=== PATIENT | female | born 1995 | race Caucasian/White ===

== ENCOUNTER 2017-08-08 23:43 | Observation (INO) ==
[2017-08-09] MEDS ORDERED: Acetaminophen 325 MG TABLET PO PRN (00:18)
--- NOTE | 2017-08-09 00:40 | OB/GYN Progress Note ---
Date of Encounter: 08/09/17 Time of Encounter: 00:38 - Assessment and Plan (1) 37 weeks gestation of Current Visit: Yes Status: Acute admitted for observation (2) Fall Current Visit: Yes Status: Acute EFM and toco for 6 hours from time of fall Qualifiers: Encounter type: initial encounter Qualified Code(s): W19.XXXA - Unspecified fall, initial encounter (3) NST (non-stress test) reactive on surveillance Current Visit: Yes Status: Acute 140 bpm moderate variability +15x15 accels no decels. No contractions noted. Subjective - Subjective Principal diagnosis: Fall Interval history: Patient is a 22 y/o at 37w5d presents to labor and delivery via squad after a fall. Patient reports around 2300 she was standing on a small chair to get something from the top of her closet and fell on her right leg and forearm. Patient denies hitting her belly. Patient reports +FM, denies contractions, LOF or VB. Antepartum ROS: movement normal, no loss of fluid, no vaginal bleeding, no contractions Objective - Vital Signs Vital Signs: Intake and Output 08/08/17 08/08/17 08/09/17 15:59 23:59 07:59 Other: Weight 78.018 kg Patient Weight 08/09/17 23:59 Weight 78.018 kg - Exam FHR: auscultation normal, category 1 FHR comments: FHR baseline 140 bpm moderate variability +15x15 accels no decels noted. No contractions. Cat. 1 tracing Auscultation: bilateral: normal Abdomen: Present: normal appearance, soft, gravid Comments: no bruising or redness noted on right leg, arm or abdomen. Blood type: O+
[2017-08-09 06:15] LABS: Amphetamine Screen,Urine Negative ng/mL (Cutoff=1000); Barbiturate Screen,Urine Negative ng/mL (Cutoff=200); Benzodiazepines Screen,Urine Negative ng/mL (Cutoff=200); Cannabinoid Screen,Urine Positive ng/mL (Cutoff = 50); Cocaine Screen,Urine Negative ng/mL (Cutoff= 300); Opiate Screen,Urine Negative ng/mL (Cutoff=300); Phencyclidine Screen,Urine Negative ng/mL (Cutoff=25)
== END 2017-08-09 06:29 | disposition home or self-care (01) ==
LOC: 1NENULAB
PROVIDERS: ADMIT Advanced Practice Midwife; ATTEND Advanced Practice Midwife

== ENCOUNTER 2017-08-22 03:45 | Inpatient (IN) ==
[2017-08-22] MEDS ORDERED: Lidocaine 1% 20 ML MDV ID PRN (04:08)
[2017-08-22] MEDS ORDERED: Metoclopramide 10 MG/2 ML VIAL IVP PRN (04:08)
[2017-08-22] MEDS ORDERED: Famotidine 20 MG/2 ML VIAL IVP PRN (04:08)
[2017-08-22] MEDS ORDERED: *HR* Nalbuphine 10 MG/ML AMPUL IVP PRN (04:08)
[2017-08-22] MEDS ORDERED: Acetaminophen 325 MG TABLET PO ONE (04:37)
[2017-08-22] MEDS ORDERED: miSOPROStol 25 MCG TABLET VG SCH (04:45)
[2017-08-22] MEDS ORDERED: Ondansetron 4 MG/2 ML VIAL IVP ONE (04:52)
[2017-08-22] MEDS ORDERED: Ondansetron 4 MG/2 ML VIAL ONE (04:54)
[2017-08-22 05:25] LABS: Basophils % 0.2 %; Eosinophils # 0.1 K/mcL (0.0-0.6); Eosinophils % 1.4 %; Hematocrit 27.8 % (35.3-44.9); Immature Granulocytes % 0.6 % (0-4); Lymphocytes # 2.6 K/mcL (0.6-4.6); Lymphocytes % 25.7 %; Mean Corpuscular HGB Conc 32.4 g/dL (31.6-35.5); Mean Corpuscular Hemoglobin 25.9 pg (28.0-33.3); Mean Corpuscular Volume 79.9 fL (83.0-100.0); Mean Platelet Volume 11.5 fL (9.4-12.4); Monocytes # 0.8 K/mcL (0.0-1.3); Monocytes % 7.9 %; Neutrophils # 6.4 K/mcL (1.6-8.9); Platelet Count 172 K/mcL (140-400); Red Blood Count 3.48 M/mcL (3.82-4.97); Red Cell Distribution Width 16.7 % (11.5-14.5); Segmented Neutrophils % 64.2 %
[2017-08-22 06:28] LABS: Amphetamine Screen,Urine Negative ng/mL (Cutoff=1000); Barbiturate Screen,Urine Negative ng/mL (Cutoff=200); Benzodiazepines Screen,Urine Negative ng/mL (Cutoff=200); Cannabinoid Screen,Urine Positive ng/mL (Cutoff = 50); Cocaine Screen,Urine Negative ng/mL (Cutoff= 300); Opiate Screen,Urine Negative ng/mL (Cutoff=300); Phencyclidine Screen,Urine Negative ng/mL (Cutoff=25)
--- NOTE | 2017-08-22 07:59 | OB/GYN History & Physical ---
Date of Encounter: 08/22/17 Time of Encounter: 08:21 Assessment and Plan (1) Elective induction of labor planned Current visit: Yes Status: Acute 22 y/o @ 39 weeks, IOL for polyhydramnios( VEENA 27) GDMA1 Anemia Plan: patient received cytotec at 5:10AM, will start pitocin after this does is completed, will AROM with advanced dilation, ok for epidural if she desires, anticipate , check FS now FHT CAT 1 History of Present Illness Chief complaint: IOL HPI: Ms. Butler is a 22 year old female @ 39 weeks who presents to the office for IOL s/2 polyhydramnios. She has been followed with NSTs and has done well. She does not report LOF, VB or ctxs, feels good FM. GBS neg, patient is anemic. Past Med Surg Social Fam HX - Past Medical History Medical history: no medical history Additional medical history: GDM, Psychiatric history: anxiety, depression, other - Past Surgical History Surgical History: no surgical history - Social History Smoking Status: Never smoker Smokeless Tobacco Status: No Alcohol use: none Drug use: none - Family History Mother Adopted: No Age: 44 Family Member Ethnicity: Non- Living Status: Still Living Hx Family Cardiac Disorders: No Hx Family Respiratory Disorders: No Hx Family Cancer: No Hx Family GI Disorders: No Hx Family Genitourinary Disorders: No Hx Family Endocrine Disorder: No Hx Family Musculoskeletal Disorders: No Hx Family Neuromuscular Disorders: No Hx Family Neurologic Disorders: No Hx Family HEENT Disorders: No Hx Family Autoimmune Disorders: No Hx Family Reproductive Disorders: No Hx Family Psychosocial Disorders: No Hx Family Medical Disorders: No Obstetrical History - Pregnancies : 1 Medications and Allergies Flintstones 1 tab PO DAILY 08/09/17 [History] Vistaril 1 tab PO Q6HR PRN 08/09/17 [History] 3 Allergy/AdvReac Type Severity Reaction Status Date / Time No Known Allergies Allergy Verified 08/09/17 00:07 Review of System OB All systems PM: reviewed and no additional remarkable complaints except as stated Exam - Vital Signs Vital signs: Initial Vital Signs Temp Pulse Resp BP 98.1 F 125 16 113/72 08/22/17 04:14 08/22/17 04:14 08/22/17 04:14 08/22/17 04:14 - Constitutional Constitutional: no acute distress - HEENT HEENT: PERRL - Neck Neck exam: full ROM - Lungs Respiratory exam: CTAB - Cardiovascular Cardiovascular exam: RRR - Abdomen Abdomen: Present: gravid - Extremities Extremities exam: warm - Cervix Dilation: 3 Effacement: 80 Results Result Diagrams: 08/22/17 04:09 Abnormal lab results RBC 3.48 M/mcL (3.82-4.97) L 08/22/17 04:09 Hgb 9.0 g/dL (11.5-15.4) L 08/22/17 04:09 Hct 27.8 % (35.3-44.9) L 08/22/17 04:09 MCV 79.9 fL (83.0-100.0) L 08/22/17 04:09 MCH 25.9 pg (28.0-33.3) L 08/22/17 04:09 RDW 16.7 % (11.5-14.5) H 08/22/17 04:09 U Marijuana (THC) Screen Positive ng/mL (Cutoff = 50) H 08/22/17 05:50 All other labs normal. - VTE Reasons for not Prescribing Prophylaxis: Treatment not Indicated - Low risk for VTE
[2017-08-22] MEDS ORDERED: Oxytocin 20 units/ LR 1000 mL 20 UNIT/1,000 ML BAG IVC ONE (09:28)
--- NOTE | 2017-08-22 12:29 | OB Labor Progress Note ---
Date of Encounter: 08/22/17 Time of Encounter: 12:28 Labor Progress Note - Subjective Subjective: patient feeling more of her ctxs - Vital Signs Vital Signs: VSS - Cervix Cervix: 4cm/80% - Heart Tones Heart Tones: CAT 1 - Plan Plan: patient AROM'ed with meconium, pitocin at 6, ok for epidural, cont monitoring, anticipate
[2017-08-22] MEDS: Ringers Solution, Lactated 1,000 ML IVC SCH ×2 (12:42→16:46)
[2017-08-22] MEDS ORDERED: Bupivacaine-MPF 0.25% 10 ML VIAL EP ONE (12:58)
[2017-08-22] MEDS ORDERED: *HR* FentaNYL (PF) 100 MCG/2 ML VIAL EP ONE (12:58)
[2017-08-22] MEDS ORDERED: Epidural Premix (fent/bupiv) 110 ML EP SCH (13:00)
[2017-08-22] MEDS ORDERED: Epidural Premix (fent/bupiv) 110 ML EP ONE (13:11)
[2017-08-22] MEDS ORDERED: Lidocaine -MPF 2% 5 ML VIAL ONE (13:14)
[2017-08-22] MEDS ORDERED: Bupivacaine-MPF 0.25% 10 ML VIAL ONE (13:17)
--- NOTE | 2017-08-22 13:57 | Anesthesia Evaluation PreOp ---
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 Denies any problems or decreased kidney function and has been under no treatment.) Anesthesia History: No Prior Anesthetic Complications (Has never had any type of anesthesia. Stats no FHAP.) : Yes Alcohol Use: none Drug use: none Medications and Allergies Flintstones 1 tab PO DAILY 08/09/17 [History] Vistaril 1 tab PO Q6HR PRN 08/09/17 [History] 3 Allergy/AdvReac Type Severity Reaction Status Date / Time No Known Allergies Allergy Verified 08/09/17 00:07 - Meds/Allergy Pre-op Review Medications Reviewed: Yes Allergies Reviewed: Yes Beta Blockers on Current Med List: No Anesthesia Results - Labs 08/22/17 04:09 Anesthesia Exam 115/71, 88, 16, 99%. FHTs 120s. Height: 5'1" Weight: 79 kg NPO (# of Hours): >8 Pain Scale: 8 Pain Scale Used: Numeric (1 - 10) - HEENT Pupil (Motor): Pupils equal Mallampati: II Teeth: Normal Oral Opening: Greater than 3 - [employer] LOC: Oriented [employer] Motor: Normal RUE, Normal LUE, Normal RLE, Normal LLE, Normal Face [employer] Sensory: Normal: RUE, LUE, RLE, LLE, Face - Cardiac Rhythm: Regular - Pulmonary Breath Sounds: bilateral Clear Respiratory Effort: Symmetrical Anesthesia Assess/Plan ASA Score: 2 Modified [place] Scale for Level of Consciousness: Cooperative, oriented, and tranquil Anesthetic Plan: Regional Monitoring Plan: Standard Monitors
--- NOTE | 2017-08-22 14:04 | Anesthesia Procedures ---
Date of Encounter: 08/22/17 Time of Encounter: 13:14 Procedures: Anesthesia - Epidural/Spinal Patient ID/Chart reviewed: Yes Patient examined: Yes OB Eval: Gestational age: 39 OB Eval: : 1 OB Eval: Hx Para: 0 OB Eval: Dilated at (cm): 4 OB Eval: Contractions: Non-stressed pattern Consent Obtained: Yes Site Prep: Aseptic Technique, Sterile prep and drape, Povidone-Iodine 1% Patient position: upright Local Anesthetic: Lidocaine 1% Amount of Local Anesthetic used: 3 Touhy Needle Gauge: 18 Catheter Depth at Skin (cm): 8 Test Dose (1.5% Lido + Epi): Volume given (mls): 3 Test Dose Result: Negative Loading Dose: 0.25% Marcaine (mls): 8 Loading Dose: Fentanyl (mcg): 100 Loading Dose Administered: Thru Catheter Infusion Med: 0.125% Bupivacaine w/ 2 mcg/ml Fentanyl Infusion Rate (mls/hr): [address]: Tegaderm, Tape Interspace Used: L3-L4 Loss of Resistance (HILDA): Yes Blood: No CSF: No Paresthesia: No Vitals + FHT's: 3 Vital Signs Time 1314 1334 1340 1345 BP 115/71 124/68 103/64 104/65 Pulse 88 98 96 106 FHTs 120 120 120 120
[2017-08-22] MEDS ORDERED: Lidocaine/EPI 1:200k 2% PF 20 ML VIAL ONE (17:01)
--- NOTE | 2017-08-22 17:04 | OB Labor Progress Note ---
Date of Encounter: 08/22/17 Time of Encounter: 17:02 Labor Progress Note - Subjective Subjective: patient in a period of distress and feeling a lot of pain, anesthesia at bedside , unable to trace heart rate - Vital Signs Vital Signs: VSS - Cervix Cervix: 6-7cm - Heart Tones Heart Tones: CAT 2 tracing - Plan Plan: FSE placed, IUPC placed, cont monitoring strip, anticipate
--- NOTE | 2017-08-22 19:47 | OB/GYN Procedure Note ---
Delivery - Delivery Date: 08/22/17 Provider: Rush Pat Intrapartum events: meconium Delivery induction: AROM, oxytocin, misoprostol Delivery augmentation: rupture of membranes, pitocin Delivery monitor: external uterine, internal FHT Anesthesia: epidural Quantitated Blood Loss: 200 - (s) Infant A Infant Delivery Date: 08/22/17 Infant Delivery Time: 18:13 Presentation: vertex Position: CARLOS Gender: Male Viability: Viable Weight Gram: 3495 kg at 1 minute: 8 at 5 mins: 9 Shoulder Dystocia: not encountered Specimens collected: cord blood Placenta: spontaneous Cord: nuchal cord, 3 umbilical vessels - Repair Episiotomy: none Laceration Description: Superficial - Complications Delivery complications: none - Disposition Mom disposition: stable in LDR disposition: stable in LDR - Comments Comments: Pam is a 22 y/o now s/p @ 1813hrs. Infant delivered CARLOS, nuchal cordx1, weight 3495g(7lbs 11oz), APGARs 8/9, cord clamped and cut and placed on Mom. Placenta delivered @ 1816hrs, left sided vaginal abrasion that was hemostatic. EBL 200. Mother and stable.
[2017-08-22] MEDS ORDERED: Measles/Mumps/Rubella Vacc 0.5 ML VIAL SQ PRN (20:04)
[2017-08-22] MEDS ORDERED: Oxytocin 20 units/ LR 1000 mL 20 UNIT/1,000 ML BAG IVC SCH (20:04)
[2017-08-22] MEDS ORDERED: Acetaminophen 325 MG TABLET PO PRN (20:04)
[2017-08-22] MEDS: Ibuprofen 600 MG TABLET PO PRN (20:11)
[2017-08-23] MEDS: Benzocaine/Menthol 56 GM AEROSOL SPRAY TP PRN ×2 (04:44→20:33)
[2017-08-23] MEDS: Lanolin 7 G OINT...G. TP PRN ×3 (04:44→20:32)
[2017-08-23] MEDS: Ibuprofen 600 MG TABLET PO PRN ×3 (04:45→20:32)
[2017-08-23 05:04] LABS: Basophils % 0.2 %; Eosinophils % 0.3 %; Hematocrit 22.6 % (35.3-44.9); Immature Granulocytes % 0.5 % (0-4); Lymphocytes # 2.4 K/mcL (0.6-4.6); Lymphocytes % 19.8 %; Mean Corpuscular HGB Conc 32.3 g/dL (31.6-35.5); Mean Corpuscular Hemoglobin 25.6 pg (28.0-33.3); Mean Corpuscular Volume 79.3 fL (83.0-100.0); Mean Platelet Volume 12.4 fL (9.4-12.4); Monocytes % 8.6 %; Neutrophils # 8.4 K/mcL (1.6-8.9); Platelet Count 151 K/mcL (140-400); Red Blood Count 2.85 M/mcL (3.82-4.97); Red Cell Distribution Width 16.7 % (11.5-14.5); Segmented Neutrophils % 70.6 %
[2017-08-23 05:11] LABS: Hemoglobin 7.3 g/dL (11.5-15.4)
[2017-08-23] MEDS: Prenatal Vit/FA 1 EACH TABLET PO SCH (07:36)
--- NOTE | 2017-08-23 09:32 | Discharge Summary ---
Date of Encounter: 08/23/17 Time of Encounter: 09:27 - Discharge Diagnosis (1) Vaginal delivery Priority: Primary Status: Acute Comments: Pain well controlled with by mouth pain meds Tolerating regular diet Voiding independently Passing flatus, but no BM yet Lochia light Ambulating independently without dizziness Discharge home today (2) Breast feeding status of mother Priority: Secondary Status: Acute Comments: Community resources provided (3) anemia Priority: Secondary Status: Acute Comments: Continue iron supplementation twice a day Return for dizziness, vision changes. - Discharge Medications Prescriptions: Ibuprofen [Motrin] 600 mg PO Q6HR PRN #30 tablet PRN Reason: Cramping Docusate [Colace] 100 mg PO BID #60 capsule Ferrous Sulfate 325 mg PO BID #60 tablet Home Medications: Flintstones 1 tab PO DAILY 08/09/17 [History] Acetaminophen [Tylenol] 650 mg PO Q6HR PRN tablet 08/23/17 [Rx] Benzocaine/Menthol [place] [Dermoplast [place]] 1 appl TP QID PRN aerosol 08/23/17 [Rx] Docusate [Colace] 100 mg PO BID #60 capsule 08/23/17 [Rx] Ferrous Sulfate 325 mg PO BID #60 tablet 08/23/17 [Rx] Ibuprofen [Motrin] 600 mg PO Q6HR PRN #30 tablet 08/23/17 [Rx] Lanolin [Lansinoh] 1 appl TP TID PRN oint...g. 08/23/17 [Rx] Allergies/Adverse Reactions: 3 Allergy/AdvReac Type Severity Reaction Status Date / Time No Known Allergies Allergy Verified 08/09/17 00:07 Data Procedures and tests throughout hospitalization: Laboratory Tests 08/22/17 08/22/17 08/22/17 04:09 05:50 08:48 WBC 10.0 RBC 3.48 L Hgb 9.0 L Hct 27.8 L MCV 79.9 L MCH 25.9 L MCHC 32.4 RDW 16.7 H Plt Count 172 MPV 11.5 Immature Gran % 0.6 Seg Neutrophils % 64.2 Lymphocytes % 25.7 Monocytes % 7.9 Eosinophils % 1.4 Basophils % 0.2 Neutrophils # 6.4 Lymphocytes # 2.6 Monocytes # 0.8 Eosinophils # 0.1 Basophils # 0.0 POC Glucose 74 Urine Opiates Screen Negative Ur Barbiturates Screen Negative Ur Phencyclidine Scrn Negative Ur Amphetamines Screen Negative U Benzodiazepines Scrn Negative Urine Cocaine Screen Negative U Marijuana (THC) Screen Positive H 08/23/17 04:38 WBC 11.9 H RBC 2.85 L Hgb 7.3 L D Hct 22.6 L MCV 79.3 L MCH 25.6 L MCHC 32.3 RDW 16.7 H Plt Count 151 MPV 12.4 Immature Gran % 0.5 Seg Neutrophils % 70.6 Lymphocytes % 19.8 Monocytes % 8.6 Eosinophils % 0.3 Basophils % 0.2 Neutrophils # 8.4 Lymphocytes # 2.4 Monocytes # 1.0 Eosinophils # 0.0 Basophils # 0.0 POC Glucose Urine Opiates Screen Ur Barbiturates Screen Ur Phencyclidine Scrn Ur Amphetamines Screen U Benzodiazepines Scrn Urine Cocaine Screen U Marijuana (THC) Screen Labs on day of discharge: Labs from last 24 hours 08/23/17 04:38 WBC 11.9 H RBC 2.85 L Hgb 7.3 L D Hct 22.6 L MCV 79.3 L MCH 25.6 L MCHC 32.3 RDW 16.7 H Plt Count 151 MPV 12.4 Immature Gran % 0.5 Seg Neutrophils % 70.6 Lymphocytes % 19.8 Monocytes % 8.6 Eosinophils % 0.3 Basophils % 0.2 Neutrophils # 8.4 Lymphocytes # 2.4 Monocytes # 1.0 Eosinophils # 0.0 Basophils # 0.0 Date of admission: 08/22/17 04:00 Primary care physician: PCP TK Consults: 08/22/17 20:04 Consult to Furnace Stock Inspector [CONS] Routine Comment: Vaginal delivery, consult needed Discharging clinician: Harriet Quintanilla Anticipated date of discharge: 08/23/17 - Patient Status Disposition: Home, Self-Care Condition: Good Functional capacity at discharge: independent ambulation Overall status at discharge: patient is progressing back to baseline - Discharge Instructions Follow Up With: NONE,PCP [Primary Care Provider] - Rush Pat MD [Partnered Physician] - Additional Instructions: Perineal Care: Always wipe front to back Change your pad frequently Use your brant bottle with warm water and spray front to back Do not douche, use tampons, have sexual intercourse or put anything in your vagina for 4-6 weeks after delivery Bleeding: Vaginal bleeding can last up to 6 weeks Your menstrual period may return as early as 6 weeks after you are discharged from the hospital Shaila/Stitches Care: Vaginal Delivery Vaginal stitches will dissolve within 4-6 weeks Follow perineal care instructions Care Stitches will dissolve on their own If you have shaila, they will need to be removed in the doctors office within 5-7 days. You may shower with stitches or shaila Drip plan or soapy water over the incision to clean. Pat dry gently with a clean towel. Make sure you completely dry under the skin folds DO NOT USE powders, lotions, rubbing alcohol or hydrogen peroxide on or around your incision. This will slow your wound healing It is normal to have soreness, burning, tingling, itchiness and/or numbness as your incision heals Activity: Rest frequently Do not lift anything heavier than a gallon of milk, up to 10-15 pounds No driving for 1-2 weeks for Vaginal delivery No driving for 2-4 weeks for delivery Take stairs slowly, one at a time Gradually increase your daily activity until you are back to your normal routine Do not exercise until you have had your follow-up appointment Bathing: Take a shower daily Do not take a tub bath for the first 4 weeks Diet: Drink plenty of water and fruit juices Eat a well-balanced diet with foods high in fiber such as fruits and vegetables Depression: Your hormones have a major impact on your feelings and emotions. Hormone imbalance may cause changes in your mood, creating unfamiliar thoughts and actions. Support is available to help you understand and cope with these feelings and mood changes. If you answer yes to any of the following questions, please call your health care provider: Are you having trouble sleeping? Are you feeling isolated? Have you lost your appetite? Are you having thoughts of hurting yourself or others? WARNING SIGNS: Heavy bleeding from the vagina (blood is bright red and soaks a sanitary pad in an hour or less.) Passing a blood clot larger than your fist Discharge from the vagina that has a bad odor Temperature over 100.4 F, or if you feel cold and have chills An episiotomy site that is warm, swollen or oozing. Use a mirror if needed Urination (pee) that is painful, very red and swollen or leaking fluid An incision that is painful, very red and swollen and leaking fluid An incision that has come open Breasts that are painful or full with flu like symptoms Redness, warmth or swelling in the calf of your leg Trouble breathing, dizziness, visual disturbance or faintness *Notify your health care provider immediately or go to the nearest Emergency Room if you experience any of the above signs.* To contact the nurses station 24 hours a day, For non-urgent, routine questions, please call the office at - Diet and Activity Activity: increase activity as tolerated Diet: regular diet Hospital Course Reason for admission: induction of labor, IUP at term Delivery: Episiotomy: none Laceration: none Other procedures: none complications: none Discharge diagnosis: IUP at term delivered Olive baby: male Time Attestation: Total time spent providing and/or coordinating discharge services: Time Spent: Less than 30 minutes Exam - Constitutional Vitals: Temp Pulse Resp BP Pulse Ox 97.7 F 93 16 84/56 98 08/23/17 08:11 08/23/17 08:11 08/23/17 08:11 08/23/17 08:11 08/23/17 08:11 General appearance IM: A&O X 3, pleasant, no acute distress, answers questions appropriately - Respiratory Respiratory exam: Present: CTAB - Cardiovascular Cardiovascular exam IM: Present: RRR, +S1, +S2 - GI/Abdominal GI/Abdominal exam IM: normal bowel sounds, no peritoneal signs - Rectal Rectal exam: deferred - Uterine Tone: Firm Uterus Position: 1 Finger Below Umbilicus, Midline - Extremities Exam Extremities exam IM: Present: normal capillary refill, normal inspection, pedal edema - Neurological Exam Neurological exam: alert, CN II-XII intact, oriented X3, reflexes normal, no focal deficits, strengths equal and symetr throughout - Psychiatric Additional comments: Patient reports history of anxiety and depression. I discussed signs and symptoms of depression at length with the patient and her family. They all verbalizes understanding of when to call for help. - Other Additional findings: Breasts: Nipples intact without erythema; soft, nontender
[2017-08-24 10:59] LABS: Basophils % 0.2 %; Eosinophils % 0.3 %; Hematocrit 24.4 % (35.3-44.9); Hemoglobin 7.5 g/dL (11.5-15.4); Immature Granulocytes % 0.7 % (0-4); Lymphocytes % 16.6 %; Mean Corpuscular HGB Conc 30.7 g/dL (31.6-35.5); Mean Corpuscular Hemoglobin 24.5 pg (28.0-33.3); Mean Corpuscular Volume 79.7 fL (83.0-100.0); Mean Platelet Volume 11.6 fL (9.4-12.4); Monocytes # 0.7 K/mcL (0.0-1.3); Monocytes % 5.8 %; Neutrophils # 9.2 K/mcL (1.6-8.9); Platelet Count 168 K/mcL (140-400); Red Blood Count 3.06 M/mcL (3.82-4.97); Red Cell Distribution Width 17.3 % (11.5-14.5); Segmented Neutrophils % 76.4 %
[2017-08-24] MEDS: Prenatal Vit/FA 1 EACH TABLET PO SCH (11:06)
[2017-08-24] MEDS: Ibuprofen 600 MG TABLET PO PRN (11:06)
[2017-08-24 12:37] VITALS: BP 102/70
--- NOTE | 2017-08-24 14:30 | Discharge Summary ---
Date of Encounter: 08/24/17 Time of Encounter: 14:27 - Discharge Diagnosis (1) anemia Priority: Secondary Status: Acute (2) Vaginal delivery Priority: Primary Status: Acute Comments: Meeting all PP milestones, Denies dizziness, or SOB with ambulation, , desires discharge. - Discharge Medications Prescriptions: Ibuprofen [Motrin] 600 mg PO Q6HR PRN #30 tablet PRN Reason: Cramping Docusate [Colace] 100 mg PO BID #60 capsule Ferrous Sulfate 325 mg PO BID #60 tablet Home Medications: Flintstones 1 tab PO DAILY 08/09/17 [History] Acetaminophen [Tylenol] 650 mg PO Q6HR PRN tablet 08/23/17 [Rx] Benzocaine/Menthol Robert [Dermoplast Robert] 1 appl TP QID PRN aerosol 08/23/17 [Rx] Docusate [Colace] 100 mg PO BID #60 capsule 08/23/17 [Rx] Ferrous Sulfate 325 mg PO BID #60 tablet 08/23/17 [Rx] Ibuprofen [Motrin] 600 mg PO Q6HR PRN #30 tablet 08/23/17 [Rx] Lanolin [Lansinoh] 1 appl TP TID PRN oint...g. 08/23/17 [Rx] Allergies/Adverse Reactions: 3 Allergy/AdvReac Type Severity Reaction Status Date / Time No Known Allergies Allergy Verified 08/09/17 00:07 Data Procedures and tests throughout hospitalization: Laboratory Tests 08/22/17 08/22/17 08/22/17 04:09 05:50 08:48 WBC 10.0 RBC 3.48 L Hgb 9.0 L Hct 27.8 L MCV 79.9 L MCH 25.9 L MCHC 32.4 RDW 16.7 H Plt Count 172 MPV 11.5 Immature Gran % 0.6 Seg Neutrophils % 64.2 Lymphocytes % 25.7 Monocytes % 7.9 Eosinophils % 1.4 Basophils % 0.2 Neutrophils # 6.4 Lymphocytes # 2.6 Monocytes # 0.8 Eosinophils # 0.1 Basophils # 0.0 POC Glucose 74 Urine Opiates Screen Negative Ur Barbiturates Screen Negative Ur Phencyclidine Scrn Negative Ur Amphetamines Screen Negative U Benzodiazepines Scrn Negative Urine Cocaine Screen Negative U Marijuana (THC) Screen Positive H 08/23/17 08/24/17 04:38 10:37 WBC 11.9 H 12.0 H RBC 2.85 L 3.06 L Hgb 7.3 L D 7.5 L Hct 22.6 L 24.4 L MCV 79.3 L 79.7 L MCH 25.6 L 24.5 L MCHC 32.3 30.7 L RDW 16.7 H 17.3 H Plt Count 151 168 MPV 12.4 11.6 Immature Gran % 0.5 0.7 Seg Neutrophils % 70.6 76.4 Lymphocytes % 19.8 16.6 Monocytes % 8.6 5.8 Eosinophils % 0.3 0.3 Basophils % 0.2 0.2 Neutrophils # 8.4 9.2 H Lymphocytes # 2.4 2.0 Monocytes # 1.0 0.7 Eosinophils # 0.0 0.0 Basophils # 0.0 0.0 POC Glucose Urine Opiates Screen Ur Barbiturates Screen Ur Phencyclidine Scrn Ur Amphetamines Screen U Benzodiazepines Scrn Urine Cocaine Screen U Marijuana (THC) Screen Labs on day of discharge: Labs from last 24 hours 08/24/17 10:37 WBC 12.0 H RBC 3.06 L Hgb 7.5 L Hct 24.4 L MCV 79.7 L MCH 24.5 L MCHC 30.7 L RDW 17.3 H Plt Count 168 MPV 11.6 Immature Gran % 0.7 Seg Neutrophils % 76.4 Lymphocytes % 16.6 Monocytes % 5.8 Eosinophils % 0.3 Basophils % 0.2 Neutrophils # 9.2 H Lymphocytes # 2.0 Monocytes # 0.7 Eosinophils # 0.0 Basophils # 0.0 Date of admission: 08/22/17 04:00 Primary care physician: PCP NONE Consults: 08/22/17 20:04 Consult to [employer] [CONS] Routine Comment: Vaginal delivery, consult needed Discharging clinician: Kiley Baxter Anticipated date of discharge: 08/24/17 - Patient Status Disposition: Home, Self-Care Condition: Good Functional capacity at discharge: independent ambulation Overall status at discharge: patient is back to baseline - Discharge Instructions Instructions: Anemia (GEN) Follow Up With: Rush Pat MD [Partnered Physician] - NONE,PCP [Primary Care Provider] - Additional Instructions: Perineal Care: Always wipe front to back Change your pad frequently Use your brant bottle with warm water and spray front to back Do not douche, use tampons, have sexual intercourse or put anything in your vagina for 4-6 weeks after delivery Bleeding: Vaginal bleeding can last up to 6 weeks Your menstrual period may return as early as 6 weeks after you are discharged from the hospital [place]/Stitches Care: Vaginal Delivery Vaginal stitches will dissolve within 4-6 weeks Follow perineal care instructions Care Stitches will dissolve on their own If you have brain, they will need to be removed in the doctors office within 5-7 days. You may shower with stitches or brain Drip plan or soapy water over the incision to clean. Pat dry gently with a clean towel. Make sure you completely dry under the skin folds DO NOT USE powders, lotions, rubbing alcohol or hydrogen peroxide on or around your incision. This will slow your wound healing It is normal to have soreness, burning, tingling, itchiness and/or numbness as your incision heals Activity: Rest frequently Do not lift anything heavier than a gallon of milk, up to 10-15 pounds No driving for 1-2 weeks for Vaginal delivery No driving for 2-4 weeks for delivery Take stairs slowly, one at a time Gradually increase your daily activity until you are back to your normal routine Do not exercise until you have had your follow-up appointment Bathing: Take a shower daily Do not take a tub bath for the first 4 weeks Diet: Drink plenty of water and fruit juices Eat a well-balanced diet with foods high in fiber such as fruits and vegetables Depression: Your hormones have a major impact on your feelings and emotions. Hormone imbalance may cause changes in your mood, creating unfamiliar thoughts and actions. Support is available to help you understand and cope with these feelings and mood changes. If you answer yes to any of the following questions, please call your health care provider: Are you having trouble sleeping? Are you feeling isolated? Have you lost your appetite? Are you having thoughts of hurting yourself or others? WARNING SIGNS: Heavy bleeding from the vagina (blood is bright red and soaks a sanitary pad in an hour or less.) Passing a blood clot larger than your fist Discharge from the vagina that has a bad odor Temperature over 100.4 F, or if you feel cold and have chills An episiotomy site that is warm, swollen or oozing. Use a mirror if needed Urination (pee) that is painful, very red and swollen or leaking fluid An incision that is painful, very red and swollen and leaking fluid An incision that has come open Breasts that are painful or full with flu like symptoms Redness, warmth or swelling in the calf of your leg Trouble breathing, dizziness, visual disturbance or faintness *Notify your health care provider immediately or go to the nearest Emergency Room if you experience any of the above signs.* To contact the nurses station 24 hours a day, For non-urgent, routine questions, please call the office at - Diet and Activity Activity: resume usual activities as tolerated Diet: regular diet Hospital Course Reason for admission: induction of labor Delivery: Episiotomy: none Laceration: none Other procedures: none complications: none Discharge diagnosis: IUP at term delivered baby: male Hospital course: Delivery - Delivery Date: 08/22/17 Provider: Rush Pat Intrapartum events: meconium Delivery induction: AROM, oxytocin, misoprostol Delivery augmentation: rupture of membranes, pitocin Delivery monitor: external uterine, internal FHT Anesthesia: epidural Quantitated Blood Loss: 200 - (s) A Delivery Date: 08/22/17 Infant Delivery Time: 18:13 Presentation: vertex Position: CARLOS Gender: Male Viability: Viable Weight Gram: 3495 kg at 1 minute: 8 at 5 mins: 9 Shoulder Dystocia: not encountered Specimens collected: cord blood Placenta: spontaneous Cord: nuchal cord, 3 umbilical vessels - Repair Episiotomy: none Laceration Description: Superficial - Complications Delivery complications: none - Disposition Mom disposition: stable in PP and appropriate for discharge. Time Attestation: Total time spent providing and/or coordinating discharge services: Time Spent: Less than 30 minutes Exam - Constitutional Vitals: Temp Pulse Resp BP Pulse Ox 98.7 F 106 12 102/70 97 08/24/17 11:45 08/24/17 11:45 08/24/17 11:45 08/24/17 11:45 08/24/17 11:45 General appearance IM: A&O X 3, pleasant, no acute distress, answers questions appropriately - Respiratory Respiratory exam: Present: CTAB - Cardiovascular Cardiovascular exam IM: Present: RRR - GI/Abdominal GI/Abdominal exam IM: normal bowel sounds, soft - Uterine Tone: Firm Uterus Position: 1 Finger Below Umbilicus - Extremities Exam Extremities exam IM: Present: normal capillary refill, normal inspection - Neurological Exam Neurological exam: normal gait, oriented X3 - Psychiatric Additional comments: reports good mood.
== END 2017-08-24 15:45 | disposition home or self-care (01) | DRG 560 ==
LOC: 1NENULAB 04:00 → 1NENUOBS 21:42
PROVIDERS: ADMIT Student in an Organized Health Care Education/Training Program; ATTEND Student in an Organized Health Care Education/Training Program